=== PATIENT | female | born 1950 ===

== ENCOUNTER 2024-12-11 05:25 | Day surgery (SDC) | payer OTHER ==
[2024-12-06 14:00] VITALS: BMI 65.0
[2024-12-11] MEDS ORDERED: PROPOFOL 20 ML ONE ×2 (09:07→09:08)
[2024-12-11] MEDS ORDERED: MIDAZOLAM HCL 2 MG/2 ML SINGLE DOSE VIAL ONE (09:07)
[2024-12-11] MEDS ORDERED: ONDANSETRON 4 MG/2 ML VIAL IVPUSH PRN (09:41)
[2024-12-11] MEDS ORDERED: oxyCODONE HCL 5 MG TABLET PO PRN (09:41)
[2024-12-11] MEDS ORDERED: ACETAMINOPHEN 1000 MG/100 ML BAG IVPB PRN (09:42)
[2024-12-11] MEDS ORDERED: SODIUM CHLORIDE 1,000 ML IV SCH (09:45)
[2024-12-11] MEDS ORDERED: ceFAZolin SODIUM 1 GM VIAL ONE (09:54)
[2024-12-11] MEDS: ceFAZolin SODIUM 1 GM VIAL IVPB ONE (09:57)
[2024-12-11] MEDS: LIDOCAINE HCL 1%, 10 MG/ML (20ML VIAL) INF ONE (10:13)
[2024-12-11] MEDS: POVIDONE-IODINE OINTMENT 10% - 28.4 GM TUBE TP ONE ×2 (11:32)
[2024-12-11 13:36] VITALS: RESP 20; TEMP 96.8
[2024-12-11 13:43] VITALS: BP 153/54; PULSE 75
== END 2024-12-11 13:35 | disposition home or self-care (01) ==
LOC: JASU-SURG 05:25
PROVIDERS: ATTEND Surgery
PROC: 03180JV Bypass Left Brachial Artery to Superior Vena Cava with Synthetic Substitute, Open Approach (ICD-10-PCS; principal; 2024-12-11 10:00)
PROC: 0WPGX3Z Removal of Infusion Device from Peritoneal Cavity, External Approach (ICD-10-PCS; 2024-12-11 10:00)
DX: N18.6 End stage renal disease (principal)
CPT/HCPCS: 86850; 86900; 86901; 94760

== ENCOUNTER 2024-12-21 08:31 | Inpatient (IN) | payer OTHER ==
[2024-12-21 10:01] LABS: ABSOLUTE IMMATURE GRANULOCYTES 0.08 x10^3/uL (0.0-0.031); BASOPHILS # 0.07 x10^3/uL (0.01-0.08); EOSINOPHIL % 4.4 % (0.7-5.8); EOSINOPHILS # 0.41 x10^3/uL (0.04-0.36); HEMATOCRIT 35.8 % (34.1-44.9); HEMOGLOBIN 11.1 g/dL (11.2-15.7); MEAN CELL VOLUME 99.7 fl (79.4-94.8); MEAN PLT VOLUME 10.4 fl (9.4-12.3); MONOCYTE # 0.72 x10^3/uL (0.24-0.86); MONOCYTE % 7.7 % (4.7-12.5); PLATELET COUNT 232 x10^3/uL (182-369); RDW 15.6 % (12.4-16.6)
[2024-12-21 10:08] LABS: INR 1.04 (0.83-1.09); PROTHROMBIN TIME (PATIENT) 11.3 SEC (9.7-13.0)
[2024-12-21 10:10] LABS: ACTIVATED PTT 29.6 SECONDS (25.2-36.5)
[2024-12-21 10:22] LABS: BLOOD UREA NITROGEN 95.7 mg/dL (7-18); CALCIUM 9.6 mg/dL (8.5-10.1); MAGNESIUM 2.3 mg/dL (1.8-2.4)
[2024-12-21 10:23] LABS: ALBUMIN 3.4 g/dl (3.4-5.0)
[2024-12-21 10:26] LABS: CREATININE 7.2 mg/dL (0.55-1.3); PHOSPHOROUS 5.2 mg/dL (2.5-4.9)
[2024-12-21 10:27] LABS: BILIRUBIN,TOTAL 0.4 mg/dL (0.2-1)
[2024-12-21] MEDS: CALCIUM ACETATE 667 MG CAPSULE (FP) PO SCH (15:14)
[2024-12-21] MEDS: METOPROLOL TARTRATE 25 MG TABLET (FP) PO SCH (21:19)
[2024-12-21] MEDS: oxyCODONE HCL 5 MG TABLET PO PRN (21:21)
[2024-12-21] MEDS: ATORVASTATIN CA 20 MG TABLET (FP) PO SCH (21:23)
[2024-12-22 07:05] LABS: HEMATOCRIT 31.7 % (34.1-44.9); HEMOGLOBIN 10.1 g/dL (11.2-15.7); MCHC 31.9 g/dl (32.2-35.5); MEAN CELL VOLUME 98.4 fl (79.4-94.8); MEAN PLT VOLUME 10.4 fl (9.4-12.3); PLATELET COUNT 200 x10^3/uL (182-369); RDW 15.7 % (12.4-16.6)
[2024-12-22 07:32] LABS: CHLORIDE 95 mmol/L (98-107); POTASSIUM 5.2 mmol/L (3.5-5.1); SODIUM 132 mmol/L (136-145)
[2024-12-22 07:51] LABS: ANION GAP 13 mmol/L (4-13); CO2 25 mmol/L (21-32)
[2024-12-22 07:53] LABS: CALCIUM 9.1 mg/dL (8.5-10.1)
[2024-12-22 07:54] LABS: GLUCOSE,RANDOM 86 mg/dL (74-106)
[2024-12-22 07:57] LABS: BLOOD UREA NITROGEN 116.5 mg/dL (7-18); CREATININE 8.6 mg/dL (0.55-1.3)
[2024-12-22] MEDS: CALCITRIOL 0.25 MCG CAPSULE (FP) PO SCH (09:20)
[2024-12-22] MEDS: VITAMIN B COMP W-C 1 EA TABLET (NEPHRO-VITE) PO SCH (09:21)
[2024-12-22] MEDS: ACETAMINOPHEN 325 MG TABLET (FP) PO SCH (09:22)
[2024-12-22] MEDS: SODIUM ZIRCONIUM CYCLOSILICATE (LOKELMA) 5 GM PACKET PO SCH (09:24)
[2024-12-22] MEDS ORDERED: SODIUM CHLORIDE 250 ML IV PRN ×2 (17:44→17:57)
[2024-12-23 07:33] LABS: CHLORIDE 92 mmol/L (98-107); POTASSIUM 5.6 mmol/L (3.5-5.1); SODIUM 130 mmol/L (136-145)
[2024-12-23 07:40] LABS: ANION GAP 18 mmol/L (4-13); CO2 20 mmol/L (21-32); GLUCOSE,RANDOM 91 mg/dL (74-106)
[2024-12-23 08:03] LABS: BLOOD UREA NITROGEN 139.6 mg/dL (7-18); CREATININE 9.5 mg/dL (0.55-1.3)
[2024-12-23] MEDS: CALCIUM GLUCONATE 10% - 1,000 MG/10 ML VIAL IVPUSH ONE ×2 (10:48→19:09)
[2024-12-23 11:34] LABS: HCV DIAGNOSTIC IN-HOUSE W/RFLX NON-REACTIVE (NONREACTIVE)
[2024-12-23] MEDS ORDERED: SODIUM CHLORIDE 250 ML IV PRN (17:10)
[2024-12-23 18:31] LABS: CHLORIDE 94 mmol/L (98-107); POTASSIUM 5.4 mmol/L (3.5-5.1); SODIUM 131 mmol/L (136-145)
[2024-12-23 18:33] LABS: ANION GAP 16 mmol/L (4-13); CALCIUM 9.4 mg/dL (8.5-10.1); CO2 21 mmol/L (21-32); GLUCOSE,RANDOM 94 mg/dL (74-106)
[2024-12-23 18:35] LABS: BLOOD UREA NITROGEN 147.8 mg/dL (7-18)
[2024-12-23 18:41] LABS: CREATININE 10.1 mg/dL (0.55-1.3)
[2024-12-23] MEDS ORDERED: DEXTROSE 50%-WATER 25 GM/50 ML DISP.SYRIN ONE (20:26)
[2024-12-23] MEDS: DEXTROSE 50%-WATER - 25 GM/50 ML VIAL IVPUSH ONE (20:27)
[2024-12-23] MEDS: INSULIN REGULAR HUMAN 100 UNITS/ML *VIAL IVPUSH ONE (20:28)
[2024-12-23] MEDS: SODIUM ZIRCONIUM CYCLOSILICATE (LOKELMA) 5 GM PACKET PO SCH (21:06)
[2024-12-24 05:07] LABS: INR 1.08 (0.83-1.09); PROTHROMBIN TIME (PATIENT) 11.8 SEC (9.7-13.0)
[2024-12-24 05:10] LABS: ACTIVATED PTT 28.8 SECONDS (25.2-36.5)
[2024-12-24 05:26] LABS: CHLORIDE 96 mmol/L (98-107); POTASSIUM 5.2 mmol/L (3.5-5.1); SODIUM 133 mmol/L (136-145)
[2024-12-24 05:28] LABS: ANION GAP 16 mmol/L (4-13); CALCIUM 9.2 mg/dL (8.5-10.1); CO2 21 mmol/L (21-32); GLUCOSE,RANDOM 94 mg/dL (74-106)
[2024-12-24 05:50] LABS: BLOOD UREA NITROGEN 157.4 mg/dL (7-18); CREATININE 10.9 mg/dL (0.55-1.3)
[2024-12-24] MEDS ORDERED: SODIUM ZIRCONIUM CYCLOSILICATE (LOKELMA) 5 GM PACKET PO ONE (06:30)
[2024-12-24] MEDS ORDERED: LIDOCAINE HCL 1%, 10 MG/ML (20ML VIAL) ONE (07:02)
[2024-12-24] MEDS ORDERED: HEPARIN NA (PORCINE) 5,000 UNITS/ML 1ML VIAL ONE (07:03)
[2024-12-24] MEDS ORDERED: PROPOFOL 20 ML ONE (07:44)
[2024-12-24] MEDS ORDERED: SUCCINYLCHOLINE CHLORIDE 200 MG/10 ML SYRINGE ONE (07:44)
[2024-12-24] MEDS ORDERED: MIDAZOLAM HCL 2 MG/2 ML SINGLE DOSE VIAL ONE (07:45)
[2024-12-24] MEDS: ceFAZolin SODIUM 1 GM VIAL IVPB ONE (07:50)
[2024-12-24] MEDS: LIDOCAINE HCL 1%, 10 MG/ML (20ML VIAL) INF ONE ×2 (08:05)
[2024-12-24] MEDS ORDERED: ONDANSETRON 4 MG/2 ML VIAL IVPUSH PRN (08:52)
[2024-12-24] MEDS ORDERED: SODIUM CHLORIDE 250 ML IV PRN (08:53)
[2024-12-24] MEDS: ACETAMINOPHEN 325 MG TABLET (FP) PO SCH (11:45)
[2024-12-24] MEDS: CALCIUM ACETATE 667 MG CAPSULE (FP) PO SCH (14:08)
[2024-12-24] MEDS: METOPROLOL TARTRATE 25 MG TABLET (FP) PO SCH (14:49)
[2024-12-24] MEDS: VITAMIN B COMP W-C 1 EA TABLET (NEPHRO-VITE) PO SCH (14:53)
[2024-12-24] MEDS: CALCITRIOL 0.25 MCG CAPSULE (FP) PO SCH (14:53)
[2024-12-24] MEDS: METOPROLOL TARTRATE 25 MG TABLET (FP) PO ONE (15:14)
[2024-12-24 16:32] LABS: POTASSIUM 3.4 mmol/L (3.5-5.1)
[2024-12-24 16:33] LABS: CALCIUM 8.3 mg/dL (8.5-10.1)
[2024-12-24 16:35] LABS: BLOOD UREA NITROGEN 50.7 mg/dL (7-18)
[2024-12-24 16:37] LABS: CREATININE 4.9 mg/dL (0.55-1.3)
[2024-12-24] MEDS: ATORVASTATIN CA 20 MG TABLET (FP) PO SCH (21:03)
[2024-12-24] MEDS: oxyCODONE HCL 5 MG TABLET PO PRN (21:04)
[2024-12-25 11:10] LABS: CALCIUM 8.9 mg/dL (8.5-10.1)
[2024-12-25 11:11] LABS: BLOOD UREA NITROGEN 71.1 mg/dL (7-18)
[2024-12-25 11:14] LABS: CREATININE 6.6 mg/dL (0.55-1.3)
[2024-12-25] MEDS ORDERED: SODIUM CHLORIDE 250 ML IV PRN (16:59)
[2024-12-26] MEDS: EPOETIN ALFA-EPBX 2,000 UNIT/ML VIAL SQ ONE (09:46)
[2024-12-26 14:46] VITALS: BMI 29.3
[2024-12-27] MEDS: METOPROLOL TARTRATE 25 MG TABLET (FP) PO SCH (10:30)
[2024-12-27] MEDS: POLYETHYLENE GLYCOL (HEALTHYLAX) 3350 17 GM PACKET PO PRN (11:06)
[2024-12-27 15:34] VITALS: RESP 18
[2024-12-27 17:24] VITALS: BP 171/86; PULSE 84; TEMP 98.2
== END 2024-12-27 17:26 | DRG 673 ==
LOC: JER 08:31 → JERBED 12:13 → J4W 15:04 → UNDODISIN 12-23 17:03 → J4W 12-24 11:43
PROVIDERS: ADMIT Student in an Organized Health Care Education/Training Program; ATTEND Internal Medicine
PROC: 05H533Z Insertion of Infusion Device into Right Subclavian Vein, Percutaneous Approach (ICD-10-PCS; 2024-12-24)
PROC: 0JH63XZ Insertion of Tunneled Vascular Access Device into Chest Subcutaneous Tissue and Fascia, Percutaneous Approach (ICD-10-PCS; principal; 2024-12-24 07:30)
DX: T82.42XA Displacement of vascular dialysis catheter, initial encounter (principal); U07.1 COVID-19; I13.0 Hypertensive heart and chronic kidney disease with heart failure and stage 1 through stage 4 chronic kidney disease, or unspecified chronic kidney disease; I50.9 Heart failure, unspecified; N18.6 End stage renal disease; E83.39 Other disorders of phosphorus metabolism; D63.1 Anemia in chronic kidney disease; E87.5 Hyperkalemia; E78.5 Hyperlipidemia, unspecified; E11.22 Type 2 diabetes mellitus with diabetic chronic kidney disease; Y83.9 Surgical procedure, unspecified as the cause of abnormal reaction of the patient, or of later complication, without mention of misadventure at the time of the procedure; Z99.2 Dependence on renal dialysis
CPT/HCPCS: 36415; 71045-TC-FY; 76000-TC-FY; 80048; 80053; 82962; 83735; 84100; 85025; 85027; 85610; 85730; 86704; 86803; 86850; 86900; 86901; 87340; 87517; 87635; 93005; 93010; 93306-TC; 94760; 99285-25; C1750; J1644; Q5106